=== PATIENT | male | born 1955 | race Caucasian/White ===

== ENCOUNTER 2021-01-04 09:24 | Emergency (ER) | payer OTHER, SELFPAY ==
--- NOTE | ~2021-01-04 | XR_ITS ---
EXAMINATION: XR chest 1V portable EXAM DATE: 01/04/2021 10:14 INDICATION: Shortness of breath. TECHNIQUE: Portable AP frontal chest x-ray was obtained. Comparison is made to prior examination from 06/03/2019. FINDINGS: There is a dual lead pacemaker/AICD seen with leads projecting over the expected locations of the right atrial appendage and right ventricle. Sternotomy wires are present without findings to s uggest sternal dehiscence. The lungs are clear. There are no pleural effusions. Cardiac silhouette is prominent but magnified on this AP technique. There is no pneumothorax suspected. There are bon y degenerative changes. IMPRESSION: No acute cardiopulmonary findings. Reviewed, dictated and finalized at location B. OR UNDERWRITER
[2021-01-04 09:15] VITALS: BP 118/74; PULSE 95; RESP 22; TEMP 37.2; O2SAT 96
--- NOTE | 2021-01-04 09:41 | ED.GENADULT ---
HPI - General Adult General Chief complaint: Unspecified Stated complaint: weakness/dizzy/cp Time Seen by Provider: 01/04/21 09:32 History of Present Illness HPI narrative: 65 yo male brought in by EMS to the ED with multiple complaints. It is not entirely cleared what caused him to call for an ambulance today. He reports pain in the left shoulder today. It is made worse by shoulder abduction. He received the COVID-19 vaccination in the shoulder yesterday. He also has pain in the left knee, which seems t be unrelated. He reports chronic pain in this location. Unclear if this is any different than usual. He also reports sharp chest pain and CAGE. Again this does not seem to be a new problem. He does report falling this morning, although the story of why and how many times varies. History limited by poor historian Related Data Home Medications Medication Instructions Recorded Confirmed aspirin 01/04/21 atorvastatin 20 mg PO HS 01/04/21 colestipol PO 01/04/21 escitalopram oxalate 10 mg PO DAILY 01/04/21 gabapentin 01/04/21 meclizine 12.5 mg PO BID PRN 01/04/21 meloxicam 15 mg PO DAILY 01/04/21 metformin mg 01/04/21 metoprolol tartrate 12.5 mg PO DAILY 01/04/21 multivitamin [Multi-Vitamin] 1 tablet PO DAILY 01/04/21 nitroglycerin 0.4 mg SUBLINGUAL Q5-15M PRN 01/04/21 pantoprazole 40 mg PO QAM 01/04/21 Allergies Allergy/AdvReac Type Severity Reaction Status Date / Time morphine Allergy Unknown Unknown Verified 06/03/19 12:16 Review of Systems Review of Systems: All systems reviewed & are unremarkable except as noted in HPI and below Constitutional: Constitutional: Denies fever(s) and Reports lethargy Eyes: Eyes: Reports no additional eye complaints ENT: Reports system reviewed and no additional complaints, except as documented Cardiovascular: Cardiovascular: Reports chest pain Respiratory: Respiratory: Reports dyspnea on exertion Gastrointestinal: Gastrointestinal: Denies abdominal pain Genitourinary: Genitourinary: Reports no additional male genitourinary complaints Musculoskeletal: Musculoskeletal: Reports arthralgias Neurologic: Denies focal weakness [facility] Past Medical History Medical History Diabetes mellitus Social History Social History Gender identity (if verbalized by the patient): Male Exam Const: General: no acute distress and alert Orientation/consciousness: patient oriented x3 HENMT: Head: normal to inspection Neck: Neck: normal visual inspection Chest: Chest palpation & inspection: no tenderness Resp: Effort & Inspection: normal respiratory effort Auscultation: clear to auscultation bilaterally, no rales, no rhonchi and no wheezes Cardio: Jugular venous distension: no JVD Rate: regular rate Rhythm: regular rhythm Heart sounds: no murmurs GI: Inspection: non-distended GI Palp: Yes Soft to palpation and No Tenderness to palpation present (GI) Skin: General skin exam: normal color Neuro: General: patient oriented x3, moves all extremities, no focal motor deficits and CN's II-XI intact bilaterally Speech: normal speech Motor exam (neuro): 5/5 motor strength present throughout Extrem: General: no edema Psych: Appearance: well kempt Affect: normal affect Course Vital Signs Vital signs: Vital Signs Temperature 37.2 C 01/04/21 09:15 Pulse Rate 95 01/04/21 09:15 Respiratory Rate 22 H 01/04/21 09:15 Blood Pressure 118/74 01/04/21 09:15 Pulse Oximetry 96 01/04/21 09:15 Temperature 37.2 C 01/04/21 09:15 Pulse Rate 92 01/04/21 14:24 Respiratory Rate 16 01/04/21 14:24 Blood Pressure 128/65 01/04/21 14:24 Pulse Oximetry 95 01/04/21 14:24 Medical Decision Making MDM Narrative Medical decision making narrative: Mild leukocytosis. No source of infection identified. Labs and imaging otherwise reassuring. Differen
[2021-01-04 09:51] VITALS: PULSE 98; RESP 18
[2021-01-04] MEDS: IPRATROPIUM BR 0.02% INH SOLN 0.5 MG/2.5 ML VIAL INHALATION (09:51)
[2021-01-04] MEDS: ALBUTEROL SULFATE NEB 2.5 MG/0.5 ML INH 5 MG INHALATION (09:51)
[2021-01-04 09:58] VITALS: BP 125/56; PULSE 92; RESP 20; O2SAT 100
[2021-01-04 10:00] LABS: Basophils Percent Auto 0.3 % (0.2-1.2); Eosinophils Absolute Auto 0.1 K/mm3 (0-0.3); Hematocrit 34.5 % (42.0-52.0); Hemoglobin 11.2 g/dL (14.0-18.0); Immature Granulocyte Absolute 0.05 K/mm3 (0.00-0.031); Immature Granulocyte Percent A 0.4 % (0-0.5); Lymphocytes Absolute Auto 0.88 K/mm3 (0.9-3.2); Lymphocytes Percent Auto 7.3 % (18.3-44.2); Mean Corpuscular HGB Conc 32.5 g/dl (32-36); Mean Corpuscular Hemoglobin 29.3 pg (26-34); Mean Corpuscular Volume 90.3 fl (80-100); Mean Platelet Volume 10.4 fl (7.4-10.4); Monocytes Absolute Auto 0.8 K/mm3 (0.1-0.6); Monocytes Percent Auto 6.4 % (2.6-8.5); Neutrophils Absolute Auto 10.2 K/mm3 (1.3-6.7); Neutrophils Percent Auto 84.6 % (45.5-73.1); Platelet Count Result 340 k/mm3 (150-375); Red Blood Count 3.82 M/mm3 (4.6-6.20); Red Cell Distribution Width 13.8 % (11.5-14.5)
[2021-01-04 10:02] VITALS: PULSE 101; RESP 18
--- NOTE | 2021-01-04 10:06 | ECG_ITS ---
Measurements Intervals [place] Rate: 94 P: 2 OR: 148 QRS: 45 QRSD: 80 T: 209 QT: 328 QTc: 410 Interpretive Statements SINUS RHYTHM LOW QRS VOLTAGE IN PRECORDIAL LEADS BORDERLINE ST-T WAVE ABNORMALITY- DIFFUSE LEADS ABNORMAL ECG Electronically Signed On 01-04-2021 11:33:58 NEWS COPY EDITOR by Edis Gonsales D.O.
[2021-01-04 10:15] LABS: Alanine Aminotransferase 24 U/L (4-50); Alkaline Phosphatase 91 U/L (38-126); Anion Gap 7 mmol/L (8-16); Aspartate Amino Transferase 40 U/L (17-59); Bilirubin,Total 0.5 mg/dL (0.2-1.3); Blood Urea Nitrogen 20 mg/dL (9-20); Calcium 8.9 mg/dL (8.4-10.2); Carbon Dioxide 29 mmol/L (22-30); Chloride 100 mmol/L (98-107); Estimated CRCL calculation 66 ml/min; Estimated Glomerular Filt Rate > 60; Glucose 173 mg/dL (75-110); Potassium 4.3 mmol/L (3.4-5.0); Sodium 136 mmol/L (137-145)
[2021-01-04 10:19] LABS: Prothrombin Time 13.5 Seconds (11.1-14.7)
[2021-01-04 10:20] LABS: Partial Thromboplastin Time 27.5 SECONDS (22.3-36.8)
[2021-01-04 12:31] LABS: Add Urine Microscopic? YES; Appearance Urine Clear (Clear); Bilirubin Urine Negative (Negative); Blood Urine Negative (Negative); Color Urine Yellow (Yellow); Glucose Urine UA Negative (Negative); Ketones Urine Negative (Negative); Leukocyte Esterase Ur Negative LEU/UL (Negative); Mucus Urine Heavy /lpf; Nitrate Urine Negative (Negative); Protein Urine 1+ mg/dL (Negative); RBC Urine 0-2 /hpf (0-2); Specific Grav Ur 1.026 (1.001-1.035); Squamous Epithelial Cell Urine Rare /hpf (Few); WBC Urine 0-3 /hpf
--- NOTE | 2021-01-04 12:52 | PC.NURSE ---
attempted to get patient up to ambulate. patient had an unsteady gait and became tacycardic and o2 sat dropped to 95
--- NOTE | 2021-01-04 12:55 | PC.NURSE ---
While trying to ambulate the patient, he got up and walked for a little bit and stumbled so we turned around and stumbled again. Pulse ox was 95 and heart rate was 112
[2021-01-04] MEDS: SODIUM CHLORIDE 0.9% IV 500 ML 999 ML IV CONT (13:15)
[2021-01-04 14:24] VITALS: BP 128/65; PULSE 92; RESP 16; O2SAT 95
== END 2021-01-04 14:25 | disposition home or self-care (01) ==
PROVIDERS: Emergency Provider Emergency Medicine
DX: R06.00 Dyspnea, unspecified (principal); M25.512 Pain in left shoulder; M25.562 Pain in left knee; E11.9 Type 2 diabetes mellitus without complications; Z79.82 Long term (current) use of aspirin; R07.9 Chest pain, unspecified
CPT/HCPCS: 36415; 71045; 80053; 81001; 85025; 85610; 85730; 86850; 86900; 86901; 93005; 94640; 96360; 99283; J7040

== ENCOUNTER 2024-10-11 14:25 | Outpatient (CLI) | payer MEDICARE, MEDICAID, SELFPAY ==
--- NOTE | ~2024-10-11 | CT_ITS ---
CT Scan of the Chest without Contrast: Clinical Indication: Lung cancer screening, nicotine dependence Technique: Contiguous sections were acquired throughout the chest without intravenous contrast. Dose reduction technique was used on this scan by utilizing automated exposure control and iterative recon struction technique. The dose-length product (DLP) was 185.88 mGy-cm. Findings: There is no evidence of any significant mediastinal, hilar or axillary lymphadenopathy. The mediastin al soft tissues appear normal. There is no evidence of pleural or pericardial effusion. The lungs are clear. No pulmonary nodules or infiltrates are noted. Images through the upper abdomen reveal no abnormalities. Impression: Lung RADS 1: Negative. 12 month follow-up screening CT advised. Reviewed, dictated and finalized at location . ITECTURAL RENDERER Impression: Lung RADS 1: Negative. 12 month follow-up screening CT advised.
== END 2024-10-11 14:26 | disposition home or self-care (01) ==
DX: Z12.2 Encounter for screening for malignant neoplasm of respiratory organs (principal); Z87.891 Personal history of nicotine dependence
CPT/HCPCS: 71271